=== PATIENT | female | born 2000 | race Caucasian/White ===

== ENCOUNTER 2023-04-07 15:13 | Outpatient (OUT) | payer OTHER, SELFPAY ==
[2023-04-07 16:05] LABS: HCG Quantitative 17248 mIU/mL
== END 2023-04-07 15:14 | disposition home or self-care (01) ==
LOC: LAB 15:13
PROVIDERS: Visit Provider Obstetrics & Gynecology
DX: N92.6 Irregular menstruation, unspecified (principal)
CPT/HCPCS: 36415; 84702

== ENCOUNTER 2023-05-12 09:01 | Outpatient (OUT) | payer OTHER, SELFPAY ==
--- NOTE | 2023-05-12 09:04 | US_ITS ---
[address] [address] Patient Name: TOMMIE THAYER MRN: [facility]:[id number] date: 2000 Sex: F Assigned Patient Location: US Current Patient Location: US Accession/Order Number: [id number] Exam Date: 05/12/2023 09:05 Report Date: 05/12/2023 12:00 At the request of: SAVANNAH BROWN Procedure: US OB >= 14 weeks Fetus EXAMINATION: US OB >= 14 weeks Fetus HISTORY: MISSED MENSES COMPARISON: No relevant comparison available. TECHNIQUE: Transabdominal sonographic examination was performed for obstetrical and evaluation. FINDINGS: Number: 1 Heart Rate: 139.0 bpm H.B. /min Amniotic Fluid Volume: Subjectively normal Placental Location: Cephalic presentation, longitudinal lie BIOMETRY: BPD: 8.1 cm 32 weeks 2 days HC: 29.4 cm 32 weeks 3 days AC: 26.6 cm 30 weeks 5 days FL: 5.8 cm 30 weeks 1 days EFW:1647.4 grams; 3 lbs. 10 oz. FL/AC: 21.7 FL/BPD: 71.6 HC/AC: 1.1 GESTATIONAL AGE: Age by EDC: Unknown Age by current US: 31 weeks 3 days SAMARIA by current US: 07/11/2023 US/US OB >= 14 weeks Fetus IMPRESSION: Viable rodarte intrauterine gestation measuring 31 weeks 3 days *Reference: [employer] Practice Guideline for the performance of Obstetric Ultrasound Examinations, February 05, 2007. Electronically authenticated by: ALANA CUENCA Date: 05/12/2023 12:00
== END 2023-05-12 09:02 | disposition home or self-care (01) ==
LOC: US 09:01
PROVIDERS: Visit Provider Obstetrics & Gynecology
DX: Z34.93 Encounter for supervision of normal pregnancy, unspecified, third trimester (principal); Z3A.31 31 weeks gestation of pregnancy; N92.6 Irregular menstruation, unspecified
CPT/HCPCS: 76815

== ENCOUNTER 2023-05-22 13:41 | Outpatient (OUT) | payer OTHER, SELFPAY ==
--- NOTE | 2023-05-22 13:45 | US_ITS ---
[address] [address] Patient Name: TOMMIE THAYER MRN: [facility]:[id number] date: 2000 Sex: F Assigned Patient Location: US Current Patient Location: US Accession/Order Number: [id number] Exam Date: 05/22/2023 13:46 Report Date: 05/23/2023 07:48 At the request of: SAVANNAH BROWN Procedure: US OB anatomy EXAMINATION: US OB anatomy, US OB cervical length HISTORY: screening, , for anatomic survey Z36.89 COMPARISON: No relevant comparison available. TECHNIQUE: Transabdominal sonographic examination was performed for obstetrical and evaluation. FINDINGS: Number: 1 Heart Rate: 142.9 bpm H.B. /min Amniotic Fluid Volume: Subjectively normal Placental Location: Anterior fundal. Grade 2. Placental edge is 9.8 cm from the internal os, venous vergara Cervix Length: 4.6 cm, closed Normal anatomy: Lateral ventricles, cerebellum, posterior fossa, orbits, four-chamber heart, RVOT, LVOT, diaphragm, stomach, kidneys, bladder, umbilical arteries, three-vessel cord, spine, extremities Suboptimal visualization: Abdominal cord insertion Abnormal: Suspected cleft lip with extension into the palate BIOMETRY: BPD: 8.4 cm 33 weeks 5 days , 69% HC: 30.5 cm 34 weeks 0 days, 42% AC: 26.7 cm 30 weeks 6 days, 6% FL: 6.0 cm 31 weeks 3 days , 9% EFW:1790.6 grams; 3 lbs. 15 oz., 10% FL/AC: 22.6 FL/BPD: 72.1 HC/AC: 1.1 GESTATIONAL AGE: Age by EDC: 32 weeks 6 days Age by current US: 32 weeks 4 days SAMARIA by current US: 07/13/2023 SAMARIA by EDC: 07/11/2023 US/US OB anatomy IMPRESSION: Cleft lip/cleft palate Suboptimal visualization of the abdominal cord insertion *Reference: [employer] Practice Guideline for the performance of Obstetric Ultrasound Examinations, February 05, 2007. Electronically authenticated by: ALANA CUENCA Date: 05/23/2023 07:48
--- NOTE | 2023-05-22 13:45 | US_ITS ---
[address] [address] Patient Name: TOMMIE THAYER MRN: [facility]:[id number] date: 2000 Sex: F Assigned Patient Location: US Current Patient Location: US Accession/Order Number: [id number] Exam Date: 05/22/2023 13:46 Report Date: 05/23/2023 07:48 At the request of: SAVANNAH BROWN Procedure: US OB cervical length EXAMINATION: US OB anatomy, US OB cervical length HISTORY: screening, , for anatomic survey Z36.89 COMPARISON: No relevant comparison available. TECHNIQUE: Transabdominal sonographic examination was performed for obstetrical and evaluation. FINDINGS: Number: 1 Heart Rate: 142.9 bpm H.B. /min Amniotic Fluid Volume: Subjectively normal Placental Location: Anterior fundal. Grade 2. Placental edge is 9.8 cm from the internal os, venous vergara Cervix Length: 4.6 cm, closed Normal anatomy: Lateral ventricles, cerebellum, posterior fossa, orbits, four-chamber heart, RVOT, LVOT, diaphragm, stomach, kidneys, bladder, umbilical arteries, three-vessel cord, spine, extremities Suboptimal visualization: Abdominal cord insertion Abnormal: Suspected cleft lip with extension into the palate BIOMETRY: BPD: 8.4 cm 33 weeks 5 days , 69% HC: 30.5 cm 34 weeks 0 days, 42% AC: 26.7 cm 30 weeks 6 days, 6% FL: 6.0 cm 31 weeks 3 days , 9% EFW:1790.6 grams; 3 lbs. 15 oz., 10% FL/AC: 22.6 FL/BPD: 72.1 HC/AC: 1.1 GESTATIONAL AGE: Age by EDC: 32 weeks 6 days Age by current US: 32 weeks 4 days SAMARIA by current US: 07/13/2023 SAMARIA by EDC: 07/11/2023 US/US OB cervical length IMPRESSION: Cleft lip/cleft palate Suboptimal visualization of the abdominal cord insertion *Reference: [employer] Practice Guideline for the performance of Obstetric Ultrasound Examinations, February 05, 2007. Electronically authenticated by: ALANA CUENCA Date: 05/23/2023 07:48
== END 2023-05-22 13:42 | disposition home or self-care (01) ==
LOC: US 13:41
PROVIDERS: Visit Provider Obstetrics & Gynecology
DX: Z36.89 Encounter for other specified antenatal screening (principal); Z3A.32 32 weeks gestation of pregnancy
CPT/HCPCS: 76805; 76817

== ENCOUNTER 2023-06-08 11:35 | Outpatient (OUT) | payer OTHER, SELFPAY ==
--- NOTE | 2023-06-08 12:10 | US_ITS ---
[place] [id number] Patient Name: TOMMIE THAYER MRN: [facility]:[id number] date: 2000 Sex: F Assigned Patient Location: [facility] Current Patient Location: Accession/Order Number: [id number] Exam Date: 06/08/2023 12:20 Report Date: 06/08/2023 13:32 At the request of: SAVANNAH BROWN Procedure: US OB BPP w non-stress EXAMINATION: US OB BPP w non-stress HISTORY: iugr COMPARISON: No relevant comparison available. TECHNIQUE: Ultrasound biophysical profile was performed in the radiology department. BREATHING MOVEMENTS: 2.0 GROSS BODY MOVEMENTS: 2.0 TONE: 2.0 QUALITATIVE AMNIOTIC FLUID VOLUME: 2.0 PRESENTATION: CEPHALIC HEART RATE: 129.2 bpm bpm. AMNIOTIC FLUID VOLUME: 14.6 cm GESTATIONAL AGE: 35 weeks 2 days CONCLUSION: 1. Total biophysical profile score 8.0. 2. Several small venous lakes and numerous calcifications within the placenta; aging placenta. Electronically authenticated by: KRISHNA STAUFFER Date: 06/08/2023 13:32
[2023-06-08 12:18] VITALS: BP 103/59; PULSE 97
[2023-06-08 12:41] LABS: Basophils Percent Auto 0.2 % (0.2-2.0); Eosinophils Absolute Auto 0.1 10^3/uL (0.0-0.7); Eosinophils Percent Auto 1.1 % (0.9-7.0); Hematocrit 26.7 % (36.0-48.0); Immature Granulocytes Abs Auto 0.09 10^3/uL (0.00-0.03); Immature Granulocytes Pct Auto 0.7 % (0.0-0.5); Lymphocytes Absolute Auto 2.5 10^3/uL (1.2-3.8); Lymphocytes Percent Auto 19.9 % (20.5-60.0); Mean Corpuscular Hemoglobin 22.5 pg (26.7-34.0); Mean Platelet Volume 10.5 fL (9.5-13.5); Monocytes Absolute Auto 0.8 10^3/uL (0.3-0.8); Monocytes Percent Auto 6.5 % (1.7-12.0); Neutrophils Absolute Auto 9.1 10^3/uL (1.4-6.5); Neutrophils Percent Auto 71.6 % (43.0-75.0); Platelet Count 280 10^3/uL (150-450); Red Blood Count 3.56 10^6/uL (4.20-5.40); Red Cell Distribution Width 15.4 % (11.0-15.0); White Blood Count 12.7 10^3/uL (4.0-11.0)
[2023-06-08 13:22] LABS: Estimated Average Glucose 105 mg/dL; Glycohemoglobin A1C 5.3 % (4.5-6.2)
[2023-06-08 13:30] LABS: Thyroid Stimulating Hormone 1.223 uIU/mL (0.358-3.740)
[2023-06-09 06:11] LABS: HCV Ab Non Reactive (Non Reactive)
[2023-06-09 07:08] LABS: Rubella Antibodies, IgG 3.33 index (Immune >0.99)
[2023-06-10 08:12] LABS: HIV Ab/p24 Ag Screen Non Reactive (Non Reactive)
[2023-06-12 15:07] LABS: HBsAg Screen Negative (Negative); Rapid Plasma Reagin, Quant Non Reactive titer (NonRea<1:1)
== END 2023-06-08 13:20 | disposition home or self-care (01) ==
LOC: FBCO 11:36 → FBC 11:38
PROVIDERS: Visit Provider Obstetrics & Gynecology
DX: Z34.93 Encounter for supervision of normal pregnancy, unspecified, third trimester (principal); Z3A.35 35 weeks gestation of pregnancy
CPT/HCPCS: 36415; 76818; 83036; 84443; 85025; 86592; 86762; 86803; 86850; 86900; 86901; 87086; 87340; 87389

== ENCOUNTER 2023-06-15 08:36 | Outpatient (OUT) | payer OTHER, SELFPAY ==
--- NOTE | 2023-06-15 09:29 | US_ITS ---
[address] [address] Patient Name: TOMMIE THAYER MRN: [facility]:[id number] date: 2000 Sex: F Assigned Patient Location: [facility] Current Patient Location: [facility] Accession/Order Number: [id number] Exam Date: 06/15/2023 09:30 Report Date: 06/15/2023 10:46 At the request of: SAVANNAH BROWN Procedure: US OB incomplete anatomy EXAM: US OB incomplete anatomy HISTORY: INCOMPLETE ANATOMY COMPARISON: 05/22/2023 TECHNIQUE: Transabdominal FINDINGS: position: Cephalic presentation, longitudinal lie Heart rate: 145 beats minute Anatomy: Normal abdominal cord insertion Cleft lip is again identified US/US OB incomplete anatomy IMPRESSION: Normal abdominal cord insertion Electronically authenticated by: ALANA CUENCA Date: 06/15/2023 10:46
== END 2023-06-15 08:37 | disposition home or self-care (01) ==
LOC: NOMS 08:36
PROVIDERS: Visit Provider Obstetrics & Gynecology
DX: Z36.2 Encounter for other antenatal screening follow-up (principal)
CPT/HCPCS: 76815

== ENCOUNTER 2023-06-15 16:05 | Outpatient (OUT) | payer OTHER, SELFPAY ==
--- NOTE | 2023-06-15 16:33 | US_ITS ---
[address] [address] Patient Name: TOMMIE THAYER MRN: [facility]:[id number] date: 2000 Sex: F [place] [facility] Location: Accession/Order Number: [id number] Exam Date: 06/15/2023 16:45 Report Date: 06/16/2023 07:16 At the request of: SAVANNAH BROWN Procedure: US OB BPP w non-stress EXAMINATION: US OB BPP w non-stress HISTORY: small for gestational age COMPARISON: No relevant comparison available. TECHNIQUE: Ultrasound biophysical profile was performed in the radiology department. FINDINGS: BREATHING MOVEMENTS: 2.0 GROSS BODY MOVEMENTS: 2.0 TONE: 2.0 QUALITATIVE AMNIOTIC FLUID VOLUME: 2.0 PRESENTATION: CEPHALIC HEART RATE: 136.4 bpm H.B./min AMNIOTIC FLUID VOLUME: 13.4 cm cm GESTATIONAL AGE: 36 weeks 2 days CONCLUSION: Total biophysical profile score: 8.0 Electronically authenticated by: ALANA CUENCA Date: 06/16/2023 07:16
[2023-06-15 16:53] VITALS: BP 108/55; PULSE 91
== END 2023-06-15 17:36 | disposition home or self-care (01) ==
LOC: FBCO 16:06 → FBC 16:28
PROVIDERS: Visit Provider Obstetrics & Gynecology
DX: O36.5930 Maternal care for other known or suspected poor fetal growth, third trimester, not applicable or unspecified (principal); Z3A.36 36 weeks gestation of pregnancy
CPT/HCPCS: 76818

== ENCOUNTER 2023-06-15 19:56 | Outpatient (REF) | payer OTHER, SELFPAY | END 2023-06-15 19:57 | disposition home or self-care (01) | LOC: LAB 19:56 | PROVIDERS: Visit Provider Obstetrics & Gynecology | DX: Z34.93 Encounter for supervision of normal pregnancy, unspecified, third trimester (principal); O36.5930 Maternal care for other known or suspected poor fetal growth, third trimester, not applicable or unspecified; Z3A.36 36 weeks gestation of pregnancy; Z36.2 Encounter for other antenatal screening follow-up | CPT/HCPCS: 76815; 76818; 87081 ==

== ENCOUNTER 2023-06-17 19:10 | Observation (INO) | payer OTHER, SELFPAY ==
[2023-06-17 20:35] VITALS: BP 114/58; PULSE 86; TEMP 35.9
[2023-06-17 20:53] LABS: Amnisure NEGATIVE (NEGATIVE)
[2023-06-17] MEDS: 0.9 % SODIUM CHLORIDE 1,000 ML 125 ML IV (21:55)
[2023-06-17] MEDS: AMPICILLIN SODIUM 2,000 MG in 0.9 % SODIUM CHLORIDE 100 ML 200 MG IV (22:12)
[2023-06-17 22:21] LABS: Bilirubin Urine NEGATIVE (NEGATIVE); Blood Urine NEGATIVE (NEGATIVE); Clarity Urine CLEAR (CLEAR); Color Urine LT. YELLOW (YELLOW); Glucose Urine UA NEGATIVE (NEGATIVE); Ketones Urine NEGATIVE (NEGATIVE); Leukocyte Esterase Urine SMALL (NEGATIVE); Nitrite Urine NEGATIVE (NEGATIVE); Protein Urine NEGATIVE (NEG/TRACE); Specific Gravity Urine <=1.005 (1.005-1.025); Urobilinogen Urine 0.2 EU/dL (0.2-1.0); pH Urine 6.5 (5.0-9.0)
[2023-06-17 22:33] LABS: Hematocrit 25.9 % (36.0-48.0); Hemoglobin 7.9 g/dL (12.0-16.0); Mean Corpuscular HGB Conc 30.5 g/dL (29.9-35.2); Mean Corpuscular Hemoglobin 22.5 pg (26.7-34.0); Mean Corpuscular Volume 73.8 fL (81.0-99.0); Mean Platelet Volume 10.5 fL (9.5-13.5); Platelet Count 276 10^3/uL (150-450); Red Blood Count 3.51 10^6/uL (4.20-5.40); Red Cell Distribution Width 15.7 % (11.0-15.0); White Blood Count 13.3 10^3/uL (4.0-11.0)
[2023-06-17 22:37] LABS: Bacteria Urine TRACE #/HPF (NONE SEEN); Cast Seen? NONE SEEN #/LPF (NONE SEEN); Crystals Seen? None Seen #/HPF (None Seen); Mucus Urine TRACE (NONE SEEN); Squamous Epithelial Cell Urine FEW #/LPF (NONE/RARE); Urine Microscopic Indicated YES
[2023-06-17 22:38] LABS: Urine Culture Indicated YES
[2023-06-17] MEDS: ACETAMINOPHEN 500 MG TABLET 1000 MG PO (22:44)
[2023-06-17 22:50] LABS: Amphetamine Screen Urine NEGATIVE (NEGATIVE); Barbiturates Screen Urine NEGATIVE (NEGATIVE); Benzodiazepines Screen Urine NEGATIVE (NEGATIVE); Buprenorphine Screen Urine NEGATIVE (NEGATIVE); Cannabinoid Screen Urine POSITIVE (NEGATIVE); Cocaine Screen Urine NEGATIVE (NEGATIVE); Methadone Screen Urine NEGATIVE (NEGATIVE); Methamphetamines Screen Urine NEGATIVE (NEGATIVE); Opiate Screen Urine NEGATIVE (NEGATIVE); Oxycodone Screen Urine NEGATIVE (NEGATIVE); Phencyclidine Screen Urine NEGATIVE (NEGATIVE); Tricyclic Antidepressant Urine NEGATIVE (NEGATIVE)
[2023-06-17] MEDS: ZOLPIDEM TARTRATE 5 MG TABLET PO (23:08)
[2023-06-17 23:13] VITALS: BP 109/58; PULSE 85; TEMP 35.8
[2023-06-18] MEDS: AMPICILLIN SODIUM 1,000 MG in 0.9 % SODIUM CHLORIDE 50 ML 100 MG IV ×2 (02:34→06:15)
[2023-06-18 02:35] VITALS: TEMP 35.4
[2023-06-18 02:36] VITALS: BP 106/55; PULSE 69; TEMP 35.3
[2023-06-18] MEDS: ACETAMINOPHEN 500 MG TABLET 1000 MG PO ×2 (06:43→10:52)
[2023-06-18 06:44] VITALS: TEMP 36.1
[2023-06-18] MEDS: 0.9 % SODIUM CHLORIDE 1,000 ML 125 ML IV (07:20)
[2023-06-18 10:52] VITALS: BP 107/52; PULSE 84
--- NOTE | 2023-06-18 11:13 | PM.OBHP ---
OB - H&P: HPI History of Present Illness Chief complaint: WATER BROKE : 4 Para: 3 History of Present Dating criteria: LMP confirmed by 1st trimester US care: limited care Review of Systems ROS CAME TO MATERNITY BELIEVING HER WATER BROKE THERE WAS A SMALL POOL OF WATER IN BED. WAS KEPT OVERNIGHT BECAUSE OMNISURE NEGATIVE, TO OBSERVE FOR FURTHER LEAKAGE OF WATER AND OR CONTRACTIONS Status of ROS: 10 or more systems reviewed and unremarkable except as noted in history and below [facility] Medical History (Updated 06/18/23 @ 11:19 by Marci Silveira MD) SROM (spontaneous rupture of membranes) Asthma ?J45.909 - Unspecified asthma, uncomplicated (ICD-10) Meds Home Medications and Allergies Home Medications Medication Instructions Recorded Confirmed Type ferrous sulfate 325 mg (65 mg 325 mg PO DAILY 06/15/23 06/15/23 History iron) tablet (Feosol) magnesium 200 mg tablet 200 mg PO DAILY 06/15/23 06/15/23 History vitamin no.42-qfaq-HN-dha cap PO 06/15/23 History 27 mg iron-1 mg-200 mg capsule Allergies Allergy/AdvReac Type Severity Reaction Status Date / Time No Known Drug Allergies Allergy Verified 06/08/23 12:09 Exam Narrative Exam Narrative: NO CONTRACTIONS NO LEAKAGE OF FLUID FOLLOWING MORNING AFTER OBS ADMIT. FEELS COMFORTABLE. BABY MOVING. Constitutional Vital Signs, click to edit/add: Last Vital Signs Temp 97.0 F L 06/18/23 06:44 Pulse 84 06/18/23 10:52 BP 107/52 06/18/23 10:52 Documenting provider has reviewed patient's vital signs: yes Common normals: no apparent distress, oriented x3, healthy appearing and alert [facility] Common normals: normocephalic and head/scalp atraumatic Eye Pupil: PERRL and accommodation reflex normal Neck & C-Spine Common normals: full ROM Respiratory Common normals: normal respiratory effort Cardio Common normals: regular rate and regular rhythm GI Common normals: Normal to inspection, nondistended, normoactive bowel sounds present, soft to palpation and non-tender Common normals: no CVA tenderness Back & Pelvis Common normals: thoracic and lumbar spine normal to inspection Extremity Common normals: normal to inspection, full ROM and no calf tenderness Neuro Common normals: CN's II-XII intact bilaterally, moves all extremities, no focal motor deficits and no sensory deficits noted Psych Common normals: mental status grossly normal, thought process normal and cooperative Results Labs Labs: Short CBC 06/17/23 Range/Units 21:45 WBC 13.3 H (4.0-11.0) 10^3/uL Hgb 7.9 L (12.0-16.0) g/dL Hct 25.9 L (36.0-48.0) % Plt Count 276 (150-450) 10^3/uL Urine 06/17/23 Range/Units 20:35 Urine Color Lt. yellow (YELLOW) Urine Clarity Clear (CLEAR) Urine pH 6.5 (5.0-9.0) Ur Specific [place] <=1.005 A (1.005-1.025) Urine Protein Negative (NEG/TRACE) mg/dL Urine Glucose (UA) Negative (NEGATIVE) mg/dL OB - A/P Assessment and Plan (1) SROM (spontaneous rupture of membranes): Assessment and Plan: PATIENT BELIEVED SHE HAD SROM. AMNISURE NEGATIVE. FERN TEST NEGATIVE. BEDSIDE ULTRASOUND SHOWS 2X2 POCKETS IN 3 OUT OF 4 QUADRANTS. NO LOF WITH COUGHING. Plan EXPLAINED THAT WHAT PATIENT THOUGHT WAS RUPTURE OF MEMBRANES WAS PASSIVE LOSS OF URINE BLADDER PRESSED BETWEEN PUBIC BONE AND LOWER UTERING SEGMENT. INFORMED OF RESULTS OF AMNISURE, ULTRASOUND AND FERN TEST. DISCHARGED. TOLD TO RETURN FOR RECURRENT SUSPICION OF SROM. CALL FOR PROBLEM OR CONCERN.
--- NOTE | 2023-06-18 11:25 | P.DS_ITS ---
DS: Providers Provider Date of admission: 06/17/23 19:20 Primary care physician: Non-Staff Physician, Admitting clinician: Marci Silveira Discharging clinician: Marci Silveira Anticipated date of discharge: 06/18/23 DS: Diagnosis Discharge Diagnosis (1) SROM (spontaneous rupture of membranes): Assessment and plan: NOT RUPTURED, NO CONTRACTIONS, CAT I FHT Plan DISCHARGE HOME OB - DS: Summary Hospital Course Hospital Course: OBSERVATION ADMIT, NO PROBLEMS Time spent discussing smoking cessation with patient: 3 to 10 minutes Complications complications: none Status at Discharge Cognitive/behavioral status at discharge: INTACT Functional status at discharge: independent ambulation Time Spent with Patient Time attestation: Total time spent providing and/or coordinating discharge services: Time spent: less than 30 minutes Specific discharge activities: CALL FOR PROBLEM OR CONCERN, FOLLOW UP FOR NEXT OB APPOINTMENT Exam Narrative Exam Narrative: SEE ADMIT EXAM WHICH WAS JUST DONE Constitutional Vital Signs, click to edit/add: Last Vital Signs Temp 97.0 F L 06/18/23 06:44 Pulse 84 06/18/23 10:52 BP 107/52 06/18/23 10:52 DS: Data Data Completed and Pending Labs on day of discharge: Labs from last 24 hours 06/17/23 06/17/23 06/17/23 21:45 20:35 20:16 WBC 13.3 H RBC 3.51 L Hgb 7.9 L Hct 25.9 L MCV 73.8 L MCH 22.5 L MCHC 30.5 RDW 15.7 H Plt Count 276 MPV 10.5 Urine Color Lt. yellow Urine Clarity Clear Urine pH 6.5 Ur Specific [place] <=1.005 A Urine Protein Negative Urine Glucose (UA) Negative Urine Ketones Negative Urine Occult Blood Negative Urine Nitrite Negative Urine Bilirubin Negative Urine Urobilinogen 0.2 Ur Leukocyte Esterase Small A Urine RBC 2-5 A Urine WBC 2-5 A Ur Squamous Epith Cells Few A Urine Crystals None seen Urine Bacteria Trace A Urine Casts None seen Urine Mucus Trace A Ur Culture Indicated? Yes Placental [id number] Negative Urine Opiates Screen Negative Ur Buprenorphine Scrn Negative Ur Oxycodone Screen Negative Urine Methadone Screen Negative Ur Barbiturates Screen Negative U Tricyclic Antidepress Negative Ur Phencyclidine Scrn Negative Ur Amphetamines Screen Negative U Methamphetamines Scrn Negative U Benzodiazepines Scrn Negative Urine Cocaine Screen Negative U Cannabinoids Screen Positive A Blood Type O Negative Antibody Screen Negative Discharge Plan Discharge Disposition: (FBC OBS) Home, Self-Care Condition: Good Assessment: NOT RUPTURED. CAT I FHT. NO CONTRACTIONS. Discharge Medications: Continued magnesium 200 mg tablet 200 mg PO DAILY ferrous sulfate [Feosol] 325 mg (65 mg iron) tablet 325 mg PO DAILY vit #[id number]-dha 27 mg iron-1 mg-200 mg capsule PO Activity: resume usual activities as tolerated Diet: regular diet Follow Up Appointments: FOLLOW UP WITH NEXT SCHEDULED APPOINTMENT, CALL FOR PROBLEM OR CONCERN
[2023-06-21 15:08] LABS: Cannabinoid Positive (.); Carboxy THC Conf, MS, UR 114 ng/mL (Cutoff=10)
== END 2023-06-18 11:42 | disposition home or self-care (01) ==
LOC: ER 19:22 → FBC 19:25
PROVIDERS: Admitting Provider Obstetrics & Gynecology; Emergency Provider Internal Medicine; Visit Provider Obstetrics & Gynecology
DX: Z03.71 Encounter for suspected problem with amniotic cavity and membrane ruled out (principal); Z3A.00 Weeks of gestation of pregnancy not specified
CPT/HCPCS: 36415; 59025; 80307; 80349; 81001; 84112; 85027; 86850; 86900; 86901; 87086; 87150; 87186; 96365; G0378

== ENCOUNTER 2023-06-19 16:39 | Inpatient (IN) | payer OTHER, SELFPAY ==
[2023-06-19 17:00] VITALS: TEMP 36.3
[2023-06-19 17:02] VITALS: BP 115/56; PULSE 101
[2023-06-19 17:10] VITALS: RESP 16; TEMP 36.3
[2023-06-19 18:14] VITALS: RESP 16
[2023-06-19 18:40] LABS: Bilirubin Urine NEGATIVE (NEGATIVE); Blood Urine NEGATIVE (NEGATIVE); Clarity Urine CLEAR (CLEAR); Color Urine LT. YELLOW (YELLOW); Glucose Urine UA NEGATIVE (NEGATIVE); Ketones Urine NEGATIVE (NEGATIVE); Leukocyte Esterase Urine TRACE (NEGATIVE); Nitrite Urine NEGATIVE (NEGATIVE); Protein Urine NEGATIVE (NEG/TRACE); Urobilinogen Urine 0.2 EU/dL (0.2-1.0)
[2023-06-19 18:49] LABS: Urine Microscopic Indicated YES
[2023-06-19 18:51] LABS: Amphetamine Screen Urine NEGATIVE (NEGATIVE); Barbiturates Screen Urine NEGATIVE (NEGATIVE); Benzodiazepines Screen Urine NEGATIVE (NEGATIVE); Buprenorphine Screen Urine NEGATIVE (NEGATIVE); Cannabinoid Screen Urine POSITIVE (NEGATIVE); Cocaine Screen Urine NEGATIVE (NEGATIVE); Methadone Screen Urine NEGATIVE (NEGATIVE); Methamphetamines Screen Urine NEGATIVE (NEGATIVE); Opiate Screen Urine NEGATIVE (NEGATIVE); Oxycodone Screen Urine NEGATIVE (NEGATIVE); Phencyclidine Screen Urine NEGATIVE (NEGATIVE); Tricyclic Antidepressant Urine NEGATIVE (NEGATIVE)
[2023-06-19 18:56] LABS: Bacteria Urine TRACE #/HPF (NONE SEEN); Cast Seen? NONE SEEN #/LPF (NONE SEEN); Crystals Seen? None Seen #/HPF (None Seen); Mucus Urine NONE SEEN (NONE SEEN); RBC Urine 0-2 #/HPF (0-2); Squamous Epithelial Cell Urine FEW #/LPF (NONE/RARE); Urine Culture Indicated NO
[2023-06-19] MEDS: 0.9 % SODIUM CHLORIDE 1,000 ML 1000 ML IV (19:00)
[2023-06-19 19:35] LABS: Hemoglobin 8.7 g/dL (12.0-16.0); Mean Corpuscular Hemoglobin 22.5 pg (26.7-34.0); Mean Corpuscular Volume 74.9 fL (81.0-99.0); Mean Platelet Volume 10.4 fL (9.5-13.5); Platelet Count 266 10^3/uL (150-450); Red Blood Count 3.87 10^6/uL (4.20-5.40); Red Cell Distribution Width 15.9 % (11.0-15.0); White Blood Count 12.1 10^3/uL (4.0-11.0)
[2023-06-19] MEDS: 0.9 % SODIUM CHLORIDE 1,000 ML 125 ML IV (20:03)
[2023-06-19 20:58] VITALS: BP 100/49; PULSE 96
[2023-06-19 21:02] VITALS: BP 105/52; PULSE 96; RESP 16; TEMP 36.1
[2023-06-19] MEDS: ACETAMINOPHEN 500 MG TABLET 1000 MG PO (22:03)
[2023-06-19] MEDS: ZOLPIDEM TARTRATE 5 MG TABLET PO (22:04)
[2023-06-20] VITALS (51 sets, daily range): BP systolic 89–121; BP diastolic 47–71; PULSE 61–110; RESP 16–18; TEMP 35.9–36.5
[2023-06-20] MEDS: 0.9 % SODIUM CHLORIDE 1,000 ML 125 ML IV ×3 (04:01→13:31)
[2023-06-20] MEDS: OXYTOCIN/0.9 % SODIUM CHLORIDE 10 UNITS/500 ML PLAST..BAG 6 UNIT IV (06:31)
[2023-06-20] MEDS: ROPIVACAINE HCL/PF 400 MG/200 ML PREMIX 6 MG EPIDURAL (09:18)
[2023-06-20] MEDS: FENTANYL CITRATE/PF 100 MCG/2 ML VIAL EPIDURAL (09:20)
[2023-06-20] MEDS: LIDOCAINE HCL 2% PF 100 MG/5 ML VIAL INJ (09:21)
[2023-06-20] MEDS: VANCOMYCIN HCL 1,000 MG in 0.9 % SODIUM CHLORIDE 250 ML 250 MG IV (11:35)
[2023-06-20] MEDS: ONDANSETRON PF 4 MG/2 ML VIAL IV (13:07)
[2023-06-20] MEDS: OXYTOCIN/0.9 % SODIUM CHLORIDE 20 UNITS/1,000 ML PLAST..BAG 125 UNIT IV (14:10)
--- NOTE | 2023-06-20 14:21 | PM.OBPRCVD ---
Procedure Intrapartal events: None Induction method: per pitocin protocol Delivery augmentation: rupture of membranes and pitocin Delivery monitor: external FHT and external uterine Route of delivery: Laceration description: periurethral - 1st degree Delivery repair: Vicryl Estimated blood loss (mL): 200 Anesthesia type: Epidural Disposition: floor Delivery date: 06/20/23 Gender: female presentation: vertex Placental delivery description: Spontaneous cord description: 3 Vessels
[2023-06-20] MEDS: IBUPROFEN 600 MG TABLET PO (15:16)
--- NOTE | 2023-06-20 15:50 | PC.NURSE ---
Mother continues to [place] with at this time. Mother holding .
--- NOTE | 2023-06-20 15:51 | PC.NURSE ---
Pt ordering lunch at this time. Pt denies needs.
--- NOTE | 2023-06-20 15:52 | SUR.HOLD ---
Nessa-care performed and pad changed. Epidural catheter removed at this time; tip intact, pt tolerated well. Pain medications given per order.
[2023-06-20] MEDS: ACETAMINOPHEN 325 MG TABLET 650 MG PO (19:18)
[2023-06-21] MEDS: IBUPROFEN 600 MG TABLET PO ×3 (00:10→21:21)
[2023-06-21] MEDS: SULFAMETHOXAZOLE/TRIMETHOPRIM 800-160 MG TABLET 1 TAB PO ×3 (00:10→21:21)
[2023-06-21 05:00] VITALS: BP 102/50; PULSE 78; TEMP 35.8
[2023-06-21] MEDS: ACETAMINOPHEN 325 MG TABLET 650 MG PO (05:11)
--- NOTE | 2023-06-21 07:54 | P.OBPN_ITS ---
OB - PN: Subj Subjective Patient comments: no complaints and pain well controlled [place] status: doing well Exam Constitutional Vital Signs, click to edit/add: Last Vital Signs Temp 96.4 F L 06/21/23 05:00 Pulse 78 06/21/23 05:00 Resp 16 06/20/23 21:10 BP 102/50 06/21/23 05:00 O2 Del Method Room Air 06/20/23 17:00 Documenting provider has reviewed patient's vital signs: yes Common normals: no apparent distress Respiratory Common normals: clear to auscultation bilaterally Cardio Common normals: regular rate and regular rhythm GI Common normals: Normal to inspection, nondistended, normoactive bowel sounds present Extremity Common normals: no clubbing, cyanosis or edema and no calf tenderness Urinary Catheter Management Urinary Catheter Management Urethral: Cath placed during this visit: yes, but has since been removed by the nurse Insertion date: 06/20/23 Insertion time: 10:04 Removal date: 06/20/23 Removal time: 14:00 OB - PN: A/P Plan - Vaginal Delivery day: 1 Plan: routine care Time Spent with Patient Time: Total time spent is greater than 50% in coordination of care (as documented) at patient's floor/unit and/or counseling patient: Total time spent with greater than 50% in coordination of care (as documented) at patient's floor/unit and/or counseling patient: less than 15 minutes
[2023-06-21 09:18] VITALS: BP 113/70; PULSE 92; RESP 16; TEMP 36.5
[2023-06-21] MEDS: DOCUSATE SODIUM 100 MG CAPSULE PO ×2 (09:20→21:21)
[2023-06-21 17:54] VITALS: BP 107/56; PULSE 90; RESP 16; TEMP 36.4
[2023-06-21 23:37] VITALS: BP 102/54; PULSE 76
[2023-06-21 23:40] VITALS: BP 102/54; PULSE 76; RESP 16; TEMP 36.9
--- NOTE | 2023-06-22 07:52 | PM.OBPN ---
OB - PN: Subj Subjective Patient comments: no complaints and pain well controlled [place] status: doing well feeding status: exclusively bottle feeding Exam Narrative Exam Narrative: s/p w 1st degree periurethral repair Constitutional Vital Signs, click to edit/add: Last Vital Signs Temp 98.5 F 06/21/23 23:40 Pulse 76 06/21/23 23:40 Resp 16 06/21/23 23:40 BP 102/54 06/21/23 23:40 O2 Del Method Room Air 06/21/23 23:40 Documenting provider has reviewed patient's vital signs: yes Common normals: no apparent distress and oriented x3 Exam limitations: altered mental status General appearance: cooperative and comfortable Orientation/consciousness: Yes awake, Yes oriented to person, Yes oriented to place and Yes oriented to time [place] Common normals: normocephalic Eye Common normals: EOMs intact bilaterally Neck & C-Spine Common normals: full ROM and no lymphadenopathy Lymph Lymphatic: no lymphadenopathy noted Chest Common normals: inspection of chest normal Respiratory Common normals: normal respiratory effort Auscultation: clear to auscultation bilaterally Cardio Common normals: regular rate and regular rhythm Rate: regular rate Rhythm: regular rhythm GI Common normals: Normal to inspection, nondistended, normoactive bowel sounds present Inspection: normal to inspection Auscultation: normoactive bowel sounds Palpation: soft Common normals: no CVA tenderness Back & Pelvis Common normals: no CVA tenderness Extremity Common normals: normal to inspection and full ROM General: normal exam except as noted Neuro Common normals: oriented x3 Sensorium/orientation: awake, alert, oriented to person, oriented to place and oriented to time Psych Psychiatry clinicians, please identify where your Mental Status Exam is documented: Mental Status Exam documented in the separate MSE Common normals: mental status grossly normal, thought process normal and cooperative Activity/motor behavior: appropriate eye contact Urinary Catheter Management Urinary Catheter Management Urethral: Cath placed during this visit: yes, but has since been removed by the nurse Insertion date: 06/20/23 Insertion time: 10:04 Removal date: 06/20/23 Removal time: 14:00 OB - PN: A/P Plan - Vaginal Delivery Plan: discharge home Time Spent with Patient Time: Total time spent is greater than 50% in coordination of care (as documented) at patient's floor/unit and/or counseling patient: Total time spent with greater than 50% in coordination of care (as documented) at patient's floor/unit and/or counseling patient: less than 15 minutes
[2023-06-22 08:31] VITALS: BP 104/59; PULSE 86; TEMP 36.1
[2023-06-22] MEDS: SULFAMETHOXAZOLE/TRIMETHOPRIM 800-160 MG TABLET 1 TAB PO (08:36)
[2023-06-22] MEDS: IBUPROFEN 600 MG TABLET PO (08:36)
[2023-06-22] MEDS: DOCUSATE SODIUM 100 MG CAPSULE PO (08:36)
--- NOTE | 2023-06-22 16:18 | SWNOTE1 ---
SW consulted due to THC positive on admission. ELIZABETH spoke with pt. She lives at home with her mother, her other 3 children, and father of children. Pt has 3 other children and they are 3,2, and 1. She has everything she needs at home for baby. She was able to keep things from other pregnancies/children. Father of baby and her mother are a good support at home for her. Pt does admit to vaping THC during . She voiced it helped with nausea and helped her eat. Pt does not have a medical marijuana card. ELIZABETH did advise pt that SW is mandated reported and call will be made to [facility]. She voiced understanding. They did open case on her 1 year old child. She had to complete drug screen and home visit and then case was closed. ELIZABETH updated nursing. ELIZABETH called [facility] CPS and made report. ELIZABETH completed HIPAA form and sent to
== END 2023-06-22 14:50 | disposition home or self-care (01) | DRG 560 ==
PROVIDERS: Admitting Provider Obstetrics & Gynecology; Visit Provider Obstetrics & Gynecology
DX: O36.5930 Maternal care for other known or suspected poor fetal growth, third trimester, not applicable or unspecified (principal); Z3A.36 36 weeks gestation of pregnancy; Z37.0 Single live birth; O26.893 Other specified pregnancy related conditions, third trimester; Z67.41 Type O blood, Rh negative; O70.0 First degree perineal laceration during delivery; O99.324 Drug use complicating childbirth; F12.90 Cannabis use, unspecified, uncomplicated; Z87.891 Personal history of nicotine dependence; B95.62 Methicillin resistant Staphylococcus aureus infection as the cause of diseases classified elsewhere
CPT/HCPCS: 36415; 59025; 59050; 59410; 80307; 80349; 81001; 84112; 85027; 85461; 86850; 86900; 86901; 87086; 87150; 87186; 88307; 96365; 96366; 96367; 96375; 96376; G0378; J0290; J2405; J2795; J3010; J3370